=== PATIENT | female | born 1945 | race Caucasian/White ===

== ENCOUNTER → 2017-08-12 | Day surgery (SDC) | payer MEDICARE, BC ==
[~2017-08-12] MED LIST: CITR500T PO; CLON1TAB PO; CYCL5TAB PO; FEXO15TA PO; LIDOCAINE HCL 1% PF 30 ML VIAL INFIL ONE; MAGN500T2 PO; MEDI220T PO; MENA1TAB PO; OCUVCAP2 PO; PROPOFOL 200 MG/20 ML AMP IV ONE; SODIUM CHLORIDE 0.9% 10 ML VIAL ONE; methylPREDNISolone ACETATE 80 MG/ML VIAL ONE
--- NOTE | 2017-08-12 11:12 | M6 ---
cc: PABLITO WINTERS M.D. DATE 08/12/2017 DATE OF 1945 PROCEDURE L5-S1 interlaminar epidural steroid injection. History and physical was completed and signed. Consent was signed. Procedure site was marked. Medications were listed and reconciled. Pain score was recorded. Allergies were noted. Time out was taken. Fluoroscopy time was recorded where applicable. Sedation was administered or directed by Dr. Winters. The patient was given oxygen. The patient was monitored by a registered nurse. Total procedure time was greater than 15 minutes. PROCEDURE NOTE IV was started. blood pressure cuff, pulse oximeter and EKG were applied. The patient was placed in the prone position on a Miles table, sedated with small amounts of propofol titrated to effect. Vital signs were monitored and remained stable throughout the procedure. The lumbar area was prepped with alcohol and 10% Betadine solution and draped with sterile drapes. Fluoroscopy was used to visualize the L5-S1 interlaminar space. The skin was infiltrated with 1% Xylocaine using a 27-gauge needle. Then at 3-1/2-inch, 18-gauge Calhoun needle was advanced using fluoroscopic guidance and the [id number]-yh-nodczmmzzi technique into the epidural space at L5-S1 slightly to the left of the midline. There was negative aspiration for blood or any other type of fluid and the patient was given 10 cc of 0.5% Xylocaine, 80 mg of Depo-Medrol. Following this the patient was taken to the recovery room with stable vital signs, neurologically intact. W. MD CAPRICE Taylor/HE /10:27 AM /10:51 AM
== END | disposition home or self-care (01) ==
LOC: PHSDC 08:54
PROVIDERS: ATTEND Pain Medicine Interventional Pain Medicine
DX: M54.5 Low back pain (principal)
CPT/HCPCS: 62323; 99152; J1040